=== PATIENT | female | born 1985 | race Caucasian/White ===

== ENCOUNTER → 2017-02-28 | Outpatient (CLI) | payer BC, OTHER ==
[~2017-02-28] MED LIST: MULT-506 PO
== END | disposition home or self-care (01) ==
LOC: C.PAPS 11:54
PROVIDERS: ATTEND Obstetrics & Gynecology
DX: Z01.419 Encounter for gynecological examination (general) (routine) without abnormal findings (principal)

== ENCOUNTER → 2017-04-14 | Outpatient (CLI) | payer OTHER ==
[2017-04-14 16:21] LABS: URINE APPEARANCE TURBID (CLEAR); URINE BILIRUBIN NEG (NEG); URINE COLOR YELLOW; URINE EPITHELIAL CELL AUTO >30 /lpf (0-5); URINE NITRITE NEG (NEG); URINE PH 5.5 (4.5-7.5); URINE SPECIFIC GRAVITY 1.031 (1.000-1.030); UROBILINOGEN NEG (NEG)
[2017-04-14 16:22] LABS: MANUAL MICROSCOPIC REQUIRED? NO; REVIEW REQ? NO
[2017-04-18 02:32] LABS: CHLAMYDIA TRACH RNA*** NOT DETECTED (NOT DETECTED); GC (NEIS GONORRHOEAE)RNA** NOT DETECTED (NOT DETECTED)
== END | disposition home or self-care (01) ==
LOC: C.LABSPEC 15:38
PROVIDERS: ATTEND Obstetrics & Gynecology
DX: Z34.91 Encounter for supervision of normal pregnancy, unspecified, first trimester (principal)

== ENCOUNTER → 2017-06-05 | Outpatient (CLI) | payer OTHER ==
[2017-06-05 18:58] LABS: GTGD 50 Grams
[2017-06-08 14:49] LABS: AFP CONCENTRATION 42.8 NG/ML; AFPTS INSULIN DEP DIABETIC? NO; AFPTS MATERNAL WT 183 LBS; ALPHA-FETOPROTEIN RACE CAUCASIAN=W; ESTRIOL MULTIPLE OF MEDIAN 0.78; HISTORY OF NTD NO; INHIBIN A 157 PG/ML; INHIBIN A MOM 1.01; REPEAT SAMPLE? NO; hCG MULTIPLE OF MEDIAN 1.61
== END | disposition home or self-care (01) ==
LOC: C.LAB 17:41
PROVIDERS: ATTEND Obstetrics & Gynecology
DX: Z34.91 Encounter for supervision of normal pregnancy, unspecified, first trimester (principal)

== ENCOUNTER → 2017-08-28 | Outpatient (CLI) | payer OTHER ==
[2017-08-28 14:14] LABS: HEMATOCRIT 34.2 % (37-47)
[2017-08-28 16:27] LABS: URINE APPEARANCE CLEAR (CLEAR); URINE BILIRUBIN NEG (NEG); URINE COLOR YELLOW; URINE NITRITE NEG (NEG); URINE PH 7.5 (4.5-7.5); UROBILINOGEN NEG (NEG)
[2017-08-28 16:28] LABS: MANUAL MICROSCOPIC REQUIRED? NO; REVIEW REQ? NO
[2017-08-29 10:15] LABS: GTGD 50 Grams
== END | disposition home or self-care (01) ==
LOC: C.LAB 12:48
PROVIDERS: ATTEND Obstetrics & Gynecology
DX: Z34.92 Encounter for supervision of normal pregnancy, unspecified, second trimester (principal)

== ENCOUNTER → 2017-10-23 | Outpatient (CLI) | payer OTHER | END | disposition home or self-care (01) | LOC: C.LABSPEC 17:31 | PROVIDERS: ATTEND Obstetrics & Gynecology | DX: Z34.93 Encounter for supervision of normal pregnancy, unspecified, third trimester (principal); Z3A.00 Weeks of gestation of pregnancy not specified ==

== ENCOUNTER 2017-11-09 12:32 | Inpatient (IN) | payer OTHER ==
[~2017-11-09] VITALS: Ht 170.2 cm; Wt 100.5 kg
[2017-11-09] MEDS ORDERED: LACTATED RINGER'S 1000ML 500 ML IV PRN ×2 (13:02→17:46)
[2017-11-09] MEDS ORDERED: LACTATED RINGER'S 1000ML 1,000 ML IV PRN (13:02)
[2017-11-09] MEDS ORDERED: OXYTOCIN 30 UNITS/500ML NSS IV PRN (13:15)
[2017-11-09 13:28] LABS: HEMATOCRIT 35.3 % (37-47); HEMOGLOBIN 12.4 g/dL (12.0-16.0); MEAN CELL VOLUME 88.5 fL (80-100); MEAN CORPUSCULAR HEMOGLOBIN 31.1 pg (25-34); MEAN CORPUSCULAR HGB CONC 35.1 g/dl (32-36); MEAN PLATELET VOLUME 9.9 fL (7.4-10.4); PLATELET COUNT 203 K/uL (130-400); RED CELL DISTRIBUTION WIDTH CV 12.8 % (11.5-14.5); RED CELL DISTRIBUTION WIDTH SD 41.4 fL (36.4-46.3); WHITE BLOOD COUNT 13.43 K/uL (4.8-10.8)
[2017-11-09] MEDS ORDERED: PENICILLIN G POTASSIUM IV 6 MU in DEXTROSE 5% 250ML 250 ML IV ONE (13:30)
[2017-11-09] MEDS: LACTATED RINGER'S 1000ML 1,000 ML IV SCH ×2 (13:30→17:46)
--- NOTE | 2017-11-09 14:06 | Medical Student: [facility] ---
Med Student History & Physical Date of Service Nov 09, 2017. Chief Complaint R/O Rupture Of Membranes History of Present Illness Source: patient Patient is a 32yo female with PMH significant for a sinus tachycardia of unknown etiology presenting to the hospital at 38+4 weeks with ruptured membranes. Patient reports membranes ruptured at approximately 1205. She denies any contractions at this time but reports movement throughout the day. Patient's is complicated by +GBS status. She is rubella immune, up to date on Tdap (09/10), and is blood type A+. Reports last meal at approximately 8am and a bowel movement this am. Denies: AGUILAR, vision changes, dizziness, NVD, fever, swelling, chest pain, SOB. Patient would like an epidural when appropriate OB History Live male delivered in 2015 at 39+5 weeks via vacuum assisted vaginal delivery due to shoulder dystocia with epidural anesthesia.Infant weighed [id number]. 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 Age first intercourse 18 with 1-5 reported lifetime partners Last pap smear 01/2017 was normal with HX abnormal dysplasia with colposcopies x 2 in 2011 Past Medical History Sinus tachycardia of unknown etiology with rates of 150bpm being within normal limits - followed by cardiology, no medical intervention Past Surgical History [place] teeth D+E for retained placenta 2015 Family History Non-contributory Social History Smoking Status: Never Smoker Smokeless Tobacco Use: No Alcohol Use: none Drug Use: none Marital Status: Housing status: lives with family Occupational Status: employed Allergies Coded Allergies: No Known Allergies (Unverified , 04/20/16) Home Medications Multivitamin (Multivitamin), 1 TAB PO AM Review of Systems Constitutional: No fever, No chills, No sweats Eyes: No worsening of vision Respiratory: No shortness of breath Cardiovascular: No chest pain, No edema, No palpitations Abdomen: No pain, No nausea, No vomiting, No diarrhea, No constipation Musculoskeletal: No swelling, No calf pain Genitourinary - Female: + Neurologic: No balance problems Psychiatric: No substance abuse Hematologic / Lymphatic: No clotting problems, No night sweats Allergic / Immunologic: No problem reported Pertinent positives and negatives included in HPI Physical Exam Vital Signs: Temp 36.7 BP 129/78, HR 110bpm, O2 98%, RR 14breaths/min General Appearance: WD/WN, no apparent distress Head: normocephalic, atraumatic Eyes: normal inspection ENT: hearing grossly normal Neck: no JVD, trachea midline Respiratory/Chest: chest non-tender, lungs clear, normal breath sounds, no respiratory distress, no accessory muscle use Cardiovascular: regular rate, rhythm, no edema, no gallop, no JVD, no murmur, normal peripheral pulses Abdomen / GI: non tender, soft Extremities: normal inspection, no calf tenderness, normal capillary refill, no pedal edema, normal range of motion, non-tender Neurologic/Psych: alert, normal mood/affect, oriented x 3 Skin: normal color, warm/dry, no rash Monitoring External Monitor: FHR at 138bpm with moderate variability and no decelerations noted - Category I tracing Tocodynamometer: Irregular contractions Laboratory Results 11/09/17 13:10 Test 11/09/17 13:10 Red Blood Count 3.99 M/uL (4.2-5.4) Mean Corpuscular Volume 88.5 fL (80-100) Mean Corpuscular Hemoglobin 31.1 pg (25-34) Mean Corpuscular Hemoglobin Concent 35.1 g/dl (32-36) RDW Standard Deviation 41.4 fL (36.4-46.3) RDW Coefficient of Variation 12.8 % (11.5-14.5) Mean Platelet Volume 9.9 fL (7.4-10.4) Assessment and Plan Patient is a 32yo presenting with ruptured membranes. Begin expectant management of impending delivery - US to assess amniotic fluid and confirm rupture - Consult with anesthesiology for epidural placement - Repeat cervical check at regular intervals - Continuos monitoring looking for signs of distress - variable/late decelerations with position changes attempted - Begin Pitocin to augment contraction sensation - NPO status until after delivery Call if patient develops fever, bp <100/60, HR >120 or <50, O2 <90% or if positioning does not alleviate FHR monitor decels
--- NOTE | 2017-11-09 15:29 | Medical Student: [facility] ---
Med Student History & Physical Date of Service Nov 09, 2017. Chief Complaint R/O Rupture Of Membranes History of Present Illness Source: patient Patient is a 32yo NEYDA of 02/13 by LMP at 38 (+4) weeks with PMH significant for a sinus tachycardia of unknown etiology presenting to the hospital with ruptured membranes. Membranes ruptured at approximately 1205, fluid was largely clear. She denies any contractions at this time but reports movement throughout the day. Patient has history of delivery at 39 (+5) weeks via vacuum assisted vaginal delivery of 9lb1oz viable male secondary to shoulder dystocia requiring induced clavicular fracture. Blood type is A+, antibody (-), rubella immune, negative diabetes screen x2, GBS (+). Tdap administered on 09/10. Vanishing twin syndrome noted at 9wk US. Last meal at approximately 8am and a bowel movement this am. Denies AGUILAR, vision changes, dizziness, NVD, fever, swelling, chest pain, SOB. Patient would like an epidural when appropriate OB History Vacuum assisted vaginal delivery of 9lb1oz male secondary to shoulder dystocia requiring induced clavicular fracture. 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 Most recent pap 02/2017 normal. Past Medical History Sinus tachycardia syndrome of unknown etiology - followed by cardiology Past Surgical History D+E for retained placental contents 2016 [place] teeth Family History Non-contributory Social History Smoking Status: Never Smoker Smokeless Tobacco Use: No Alcohol Use: none Drug Use: none Marital Status: Housing status: lives with family Occupational Status: employed Allergies Coded Allergies: No Known Allergies (Unverified , 04/20/16) Home Medications Multivitamin (Multivitamin), 1 TAB PO AM Review of Systems Constitutional: No fever, No chills Eyes: No worsening of vision Respiratory: No shortness of breath Cardiovascular: No chest pain, No edema Abdomen: No pain, No nausea, No vomiting, No diarrhea, No constipation Genitourinary - Female: + , No problem reported Neurologic: No balance problems Psychiatric: No substance abuse Physical Exam Vital Signs: 36.7 HR 108 BP 129/78 RR 14 O2 98% General Appearance: WD/WN, no apparent distress, + pertinent finding Head: normocephalic, atraumatic Eyes: normal inspection, sclerae normal ENT: hearing grossly normal Neck: supple, no JVD, trachea midline Respiratory/Chest: lungs clear, normal breath sounds, no respiratory distress, no accessory muscle use Cardiovascular: regular rate, rhythm, no edema, no gallop, no JVD, no murmur, normal peripheral pulses Abdomen / GI: non tender, soft Fundal Height: Term Extremities: normal inspection, no calf tenderness, normal capillary refill, no pedal edema, normal range of motion, non-tender Neurologic/Psych: alert, normal mood/affect, oriented x 3 Skin: normal color, warm/dry Abdomen: Gravid, fundal height at term, positive heart tones at 143bpm, position is vertex, estimated weight of 9lbs. No palpable contractions Pelvis: Per Dr. Walton exam 3cm dilated, 50% effaced, at -2 station. Speculum exam deferred. Extremities: No calf tenderness to palpation bilaterally, no signs of rubor or dolor, calf diameters visually symmetrical. Appropriate capillary refill Neuro: No evidence of hyperreflexia or clonus. Spontaneous movement all extremities. Alert and oriented x3 Monitoring External Monitor: Baseline HR in 140s with moderate variability and no decelerations: Category I tracing. Tocodynamometer: Irregular, minimal contractions Laboratory Results 11/09/17 13:10 Test 11/09/17 13:10 Red Blood Count 3.99 M/uL (4.2-5.4) Mean Corpuscular Volume 88.5 fL (80-100) Mean Corpuscular Hemoglobin 31.1 pg (25-34) Mean Corpuscular Hemoglobin Concent 35.1 g/dl (32-36) RDW Standard Deviation 41.4 fL (36.4-46.3) RDW Coefficient of Variation 12.8 % (11.5-14.5) Mean Platelet Volume 9.9 fL (7.4-10.4) Assessment and Plan Patient is a 32yo at 38(+4) week with history of prior with shoulder dystocia requiring vacuum assistance presenting with rupture membranes. Expectant management of labor and delivery - Cervical check at regular intervals to assess progression - Begin Pitocin to initiate regular contractions - Consult anesthesiology for epidural placement at patient's request - NPO status - water and ice chips acceptable - Continuous monitoring for signs of distress (variable/late decels, sinusoidal pattern) - change of position for possible resolution - contact provider if unrelenting - Vitals q20min for maternal monitoring - 1 assist ambulation until epidural is placed - Straight cath if necessary for bladder drainage once epidural is placed GBS(+) status - Begin IV ampicillin x2-3 doses during labor Contact provider for non-reassuring monitoring, sudden AGUILAR, NV, visual changes, unexplainable vital sign changes
[2017-11-09 16:08] VITALS: Ht 170.2 cm; Wt 100.5 kg
[2017-11-09] MEDS ORDERED: BUPIVACAINE 0.25% 30 ML VIAL ONE (16:31)
[2017-11-09] MEDS ORDERED: EpHEDrine SULFATE INJ 50 MG/ML AMP ONE (16:31)
[2017-11-09] MEDS ORDERED: FENTANYL CITRATE INJ 50 MCG/1 ML 2 ML VIAL ONE (16:32)
[2017-11-09] MEDS ORDERED: FENTANYL 2MCG/ML ROPIV 1.25MG/ML 100ML BAG EPI ONE (16:33)
[2017-11-09] MEDS: PENICILLIN G POTASSIUM IV 3 MU in DEXTROSE 5% 100ML 100 ML IV PRN ×2 (17:27→21:37)
[2017-11-09] MEDS ORDERED: NALOXONE HCL INJ 1 MG in SODIUM CHLORIDE 0.9% 1000ML 1,000 ML IV PRN (17:46)
[2017-11-09] MEDS ORDERED: FENTANYL 2MCG/ML ROPIV 1.25MG/ML 100ML BAG EPI PRN (18:00)
[2017-11-09] MEDS ORDERED: PROMETHAZINE HCL INJ 6.25 MG in SODIUM CHLORIDE 0.9% 50ML 50 ML IV PRN (18:00)
[2017-11-09] MEDS ORDERED: NALOXONE HCL INJ 0.4 MG/1 ML VIAL/CARP IV PRN (18:00)
[2017-11-09] MEDS ORDERED: DiphenhydrAMINE HCL 50 MG/ML VIAL IV PRN (18:00)
[2017-11-09] MEDS ORDERED: ONDANSETRON INJ 2 MG/ML 2 ML VIAL IV PRN (18:00)
[2017-11-09] MEDS ORDERED: NALBUPHINE HCL INJ 10 MG/ML AMP IV PRN (18:00)
[2017-11-09] MEDS ORDERED: EpHEDrine SULFATE INJ 50 MG/ML AMP IV PRN (18:00)
[2017-11-10] MEDS ORDERED: DIPHTHERIA/TETANUS/PERTUSSIS 0.5 ML SYR/VIAL IM. ONE (00:30)
[2017-11-10] MEDS ORDERED: ACETAMINOPHEN 325 MG TAB PO PRN (00:30)
[2017-11-10] MEDS ORDERED: ACETAMINOPHEN/CODEINE 300/30MG TAB PO PRN ×2 (00:30)
[2017-11-10] MEDS ORDERED: HYDROCORTISONE ACETATE 25 MG SUPP PR PRN (00:30)
[2017-11-10] MEDS ORDERED: LANOLIN OINT EXT PRN (00:30)
[2017-11-10] MEDS ORDERED: OXYTOCIN 30 UNITS/500ML NSS IV PRN (00:30)
[2017-11-10] MEDS ORDERED: SUPERCREAM 0.870 % 15GM JAR EXT PRN (00:30)
[2017-11-10] MEDS ORDERED: BENZOCAINE 20% AER SPR 82.5 GM CAN EXT PRN (00:30)
[2017-11-10 03:01] VITALS: BP 119/75; PULSE 102; TEMP 37
--- NOTE | 2017-11-10 04:39 | DELIVERY SUMMARY ---
DATE OF OPERATION: 11/10/2017 FINDINGS: Viable male with Apgars of 8 and 9. Tight nuchal cord cut on the perineum. Cord blood samples obtained. Placenta delivered spontaneously. Second-degree midline laceration repaired. Estimated blood loss 300 mL. LABOR NOTE: The patient is a 32-year-old 2, para 1, with an EDC of 11/20/2017 at 38+ weeks gestational age, who presented to labor and delivery with spontaneous rupture of membranes. The patient states her membranes ruptured around 1100 hours on 11/09/2017 with no real contractions. The patient's first in 2016 was a shoulder dystocia vacuum delivery with a broken clavicle, baby delivered at 39-5/7 weeks. This was remarkable for a vanishing twin. At her new OB visit, there was a second empty sac. Ultrasound also showed a small septate uterus. Laboratory values for the showed blood type of A positive, antibody negative, rubella immune, hepatitis B negative, negative quad screen, normal 1-hour Glucola x2 and a positive third trimester beta strep culture. Upon admission, the patient was 3 cm dilated, 50% effaced and -2 station with a positive AmniSure. Because of the positive GBS status, she was started on penicillin 6 million units loading dose and 3 million units every 4 hours. With the rupture of membranes and no real contractions, Pitocin was started per induction protocol. Pitocin was increased per induction protocol, the patient became uncomfortable and an epidural was placed. The patient made minimal progress for the first 6 hours and intrauterine pressure catheter was placed. She eventually went into an active labor and made rapid change from 4 cm to fully dilated. She pushed for approximately 5 minutes, delivering a viable male infant with delivery of the vertex over the tight nuchal cord that could not be reduced. As such, the cord was cut on the perineum. Baby was delivered. Cord blood samples were obtained. Placenta delivered spontaneously. Inspection of the perineum showed midline second-degree laceration which was repaired with 4-0 Vicryl in routine fashion. Estimated blood loss was 300 mL. Sponge and needle count was correct. I attest to the content of the Intraoperative Record and any orders documented therein. Any exception s are noted below.
--- NOTE | 2017-11-10 06:56 | Discharge Instructions ---
Discharge Instructions Date of Service Nov 10, 2017. Admission Reason for Admission: R/O Rupture Of Membranes Discharge Discharge Diagnosis / Problem: Vaginal Delivery Discharge Goals Goal(s): Routine recovery after delivery Medications Continue Dispensed Medications: supercream, dermaplast, tucks, lansinoh Activity Recommendations Activity Limitations: per Instructions/Follow-up section . Instructions / Follow-Up Instructions / Follow-Up ACTIVITY RECOMMENDATIONS: * Gradual return to full activity over the next 2-3 weeks. * No lifting - nothing heavier than baby over the next 2-3 weeks. * Do not engage in vigorous exercise, sexual activity or sports until cleared by your physician. * Do not drive or operate any motorized equipment until cleared by your physician. * You may shower/bathe daily. MEDICATIONS: For discomfort or pain, you may use Acetaminophen (Tylenol), Ibuprofen (Advil), or Naproxen (Aleve) following the package directions. For constipation you may use Colace following the package directions. BREAST CARE: If you are not breast feeding: * Wear a supportive bra 24 hours a day for one to two weeks. * Avoid stimulating your breasts and nipples as much as possible during the first few weeks after delivery. * When taking a shower, have the warm water hit your back, not breasts. * When your breasts feel full, apply ice packs. Usually three to four times a day helps ease the discomfort. * Take a mild pain medication (Tylenol / Motrin) when you are uncomfortable. If breast feeding: * Use breast milk to lubricate nipples. Lansinoh cream may be used for sore nipples. You do not need to remove cream prior to breast feeding. If using a different brand of cream, check the label for directions regarding removal of cream prior to nursing. * Wear a supportive bra. * If having problems with breasts or breast feeding, call a center lead consultant or your health care provider. EPISIOTOMY CARE: After delivery, if you have an episiotomy (stitches), the following steps will ease discomfort and aid healing. * For the first 24 hours after delivery, place ice packs next to your episiotomy to help reduce swelling. * After the first 24 hour-period, sitz baths, either portable or in the tub, are suggested. A shower with a shower arm sprayed over the episiotomy may be comforting. * Sima care should be done after each voiding and bowel movement. Squirt warm water from a plastic bottle over the perineum (region of the body between the anus and urinary opening) and pat dry. * Use Dermoplast to ease discomfort. Shake container. [place] directly over the episiotomy. Place a Tucks on a clean sanitary pad next to your episiotomy. SPECIAL CARE INSTRUCTIONS: When you are discharged from the hospital, it is important for you to follow the instructions listed below: * During the first week at home, you should be able to care for yourself and your baby. In addition, the usual light household activities are encouraged. * Limit your activities to the way you feel. Do not try to clean the house or move furniture. Be sensible. * If you actively engage in sports and have done so up until the time of your delivery, you may resume these activities as soon as you feel able. This may take up to one month or even longer. Use good judgment. * Continue to take your vitamins for at least six weeks after the of your baby. * Your diet need not be limited unless you were on a special diet before your delivery. Breast-feeding mothers need around 2500 calories per day and at least 64-80 ounces of fluid per day (8 to 10 glasses). * You should eat foods from the four major food groups. Crash diets or fad diets are to be avoided. Eating lean meats, fresh fruits and vegetables, low-fat dairy products, high fiber foods and a regular exercise program, will help you get back to your pre- weight without putting your health at risk. * Constipation is sometimes a problem after delivery. Take a mild laxative as needed. If breast feeding, Milk of Magnesia is acceptable to use. You may use a suppository or Fleets enema if no episiotomy. * A daily shower or tub bath is suggested. Be sure to thoroughly and gently dry the perineum. * A bloody vaginal discharge will usually continue until around four weeks post . A small amount of bleeding may continue for as long as six weeks. Vaginal discharge changes from the bright red bleeding after delivery to pink then brownish and finally yellowish-pink before becoming white and disappearing. * Bleeding may increase with activity. Your first period may come in 4-8 weeks. If you are breast feeding, your period may be delayed even longer. * [place] (sex) can begin whenever both you and your partner feel comfortable and do not have any form of genital infection. It is recommended that you wait at least six weeks for internal and external healing to occur. If you have questions, please talk to your health care practitioner. A condom should be used to prevent infection and . * Foreplay, gentle intercourse and lubrication is very important the first several times to prevent pain. A water-based lubricant such as K-Y jelly or Astroglide may be used. * If you have RH negative blood and your baby is RH positive, you will receive RHOGAM by injection prior to discharge. The nurse will give you a card to keep with you that has the date and place that you received RHOGAM after delivery. * During your care, you had a Rubella screen done to check for the presence of rubella antibodies in your blood. If your test was negative, you will receive a Rubella vaccine prior to discharge. This vaccine may cause a fever, soreness at the injection site and flu-like symptoms. If these symptoms persist, notify your health care practitioner. is not advised for one month after a Rubella vaccine. * Verbalizes understanding of car seat law as reviewed with patient nursing. * Car Seat hand-out given and reviewed with patient by nursing. * Shaken baby information reviewed with patient by nursing. Call you doctor if: * Heavy bleeding (saturating several pads an hour) or passing clots the size of your fist. * A fever >101 degrees F (38.3 degrees C) on two occasions four hours apart and /or chills. * Unusual pain in the pelvic or vaginal areas. * "Baby Blues" lasting longer than two weeks. If you have any questions or concerns, call your health care practitioner at . FOLLOW UP VISIT: * Please call the office at to schedule a 6 week examination. It is important you keep this appointment. It is important for you to make arrangements for either yearly or twice yearly check-ups thereafter. Current Hospital Diet Patient's current hospital diet: Regular OB Diet Discharge Diet Recommended Diet: Regular Diet Pending Studies Studies pending at discharge: no Medical Emergencies . Who to Call and When: Medical Emergencies: If at any time you feel your situation is an emergency, please call 911 immediately. . Non-Emergent Contact Non-Emergency issues call your: Primary Care Provider . . "Provider Documentation" section prepared by Nicolasa Sanchez. . VTE Core Measure Inpt VTE Proph given/why not?: Treatment not indicated
--- NOTE | 2017-11-10 07:38 | Anesthesia Procedure Note ---
Anesthesia Epidural Removal Nt Date & Time Nov 10, 2017 at 07:38 Vital Signs Pain Intensity: 0.0 Vital Signs Past 12 Hours Date Time Temp Pulse Resp B/P (MAP) Pulse Ox O2 Delivery O2 Flow Rate FiO2 11/10/17 03:05 Room Air 11/10/17 03:01 37.0 102 18 119/75 (90) Room Air Notes Mental Status: alert / awake / arousable, participated in evaluation Nausea / Vomiting: adequately controlled Pain: adequately controlled Airway Patency, RR, SpO2: stable & adequate BP & HR: stable & adequate Hydration State: stable & adequate Neuraxial Anesthesia: was administered, sensory block is resolved Anesthetic Complications: no major complications apparent, pt satisfied with anesthetic care Epidural: removed without complications, with tip intact
[2017-11-10 08:00] VITALS: BP 108/70; PULSE 83; TEMP 37.1
[2017-11-10] MEDS: FERROUS SULFATE 325 MG TAB PO SCH (08:28)
[2017-11-10] MEDS: PRENATAL VITAMIN TAB PO SCH (08:28)
[2017-11-10] MEDS: DOCUSATE SODIUM 100 MG CAP PO SCH ×2 (08:28→19:43)
[2017-11-10] MEDS: IBUPROFEN 600 MG TAB PO PRN ×2 (08:34→19:43)
[2017-11-10 13:00] VITALS: BP 114/70; PULSE 87; TEMP 37.2
[2017-11-10 16:00] VITALS: BP 137/81; PULSE 83; TEMP 37.3
[2017-11-10 19:45] VITALS: BP 125/78; PULSE 81; TEMP 36.6
[2017-11-10 23:15] VITALS: BP 120/79; PULSE 85; TEMP 37.1; O2SAT 96
[2017-11-11] MEDS: IBUPROFEN 600 MG TAB PO PRN ×4 (00:43→21:10)
--- NOTE | 2017-11-11 06:38 | Progress Note ---
Subjective Nov 11, 2017. Subjective conversation w/ patient (Patient seen and examined at bedside) Ambulation: ambulating normally Voiding: no voiding problems Diet Tolerance: Regular Diet Lochia: Moderate Feeding Type: Breast Feeding Pain: 2/10 cramping pain, improved with analgesia Review of Systems Constitutional: No fever, No chills Respiratory: No shortness of breath Cardiac: No chest pain Abdomen: No nausea, No vomiting Female : No dysuria Objective Vital Signs Date Time Temp Pulse Resp B/P (MAP) Pulse Ox O2 Delivery O2 Flow Rate FiO2 11/10/17 23:15 37.1 85 18 120/79 (93) 96 Room Air 11/10/17 23:15 96 Room Air 11/10/17 19:45 36.6 81 18 125/78 (94) Room Air 11/10/17 16:00 Room Air 11/10/17 16:00 37.3 83 16 137/81 (99) Room Air 11/10/17 13:00 37.2 87 20 114/70 (85) Room Air 11/10/17 08:00 37.1 83 20 108/70 (83) Room Air 11/10/17 08:00 Room Air Physical Exam General Appearance: WELL-APPEARING, WD/WN, NO APPARENT DISTRESS Respiratory/Chest: lungs clear, normal breath sounds Cardiovascular: regular rate, rhythm Abdomen: soft Fundus: Firm, Non-Tender, Relation to Umbilicus (at u) Extremities: no calf tenderness Laboratory Results Last 24 Hours Test 11/11/17 04:44 Medications Current Inpatient Medications Medications (Trade) Dose Ordered Sig/Se Route Start Time Stop Time Status Last Admin Dose Admin Oxytocin (Pitocin IV) 30 units UD PRN IV 11/10/17 00:30 12/10/17 00:29 Benzocaine (Dermoplast Aero Spr) 1 appln PRN PRN EXT 11/10/17 00:30 12/10/17 00:29 Cocaine HCl (Supercream 0.870% Cr) BID PRN EXT 11/10/17 00:30 11/24/17 00:29 11/10/17 02:49 15 GM Hydrocortisone Acetate (Anusol Hc Supp) 25 mg BID PRN MS 11/10/17 00:30 12/10/17 00:29 Lanolin (Lanolin Oint) PRN PRN EXT 11/10/17 00:30 12/10/17 00:29 Prenat Multivit/ Paper Control Clerk/Iron/Folic Ac ( Vitamin Tab) 1 tab DAILY PO 11/10/17 08:00 12/10/17 07:59 11/10/17 08:28 1 TAB Ibuprofen (Motrin Tab) 600 mg Q4H PRN PO 11/10/17 00:30 12/10/17 00:29 11/11/17 00:43 600 MG Acetaminophen (Tylenol Tab) 650 mg Q6H PRN PO 11/10/17 00:30 12/10/17 00:29 Acetaminophen/ Codeine Phosphate (Tylenol w/ Codeine #3 Tab) 1 tab Q4H PRN PO 11/10/17 00:30 12/10/17 00:29 Acetaminophen/ Codeine Phosphate (Tylenol w/ Codeine #3 Tab) 2 tab Q4H PRN PO 11/10/17 00:30 12/10/17 00:29 Bisacodyl (Dulcolax Tab) 5 mg 20 PO 11/11/17 20:00 11/11/17 20:01 Docusate Sodium (coLACE CAP) 100 mg BID PO 11/10/17 08:00 12/10/17 07:59 11/10/17 19:43 100 MG Ferrous Sulfate (Feosol Tab) 325 mg DAILY PO 11/10/17 08:00 12/10/17 07:59 11/10/17 08:28 325 MG Assessment and Plan Post- Day#: 1 Continue Routine Care: Resident Physician Supervision Note: I was present with Dr. Sanchez during the history and exam. I discussed the case with the resident and agree with the findings and plan as documented in the note. Any exceptions or clarifications are listed here: [None] Documented By: Shelia Redd 32 year old s/p NVD day 1 - GBS +ve - treated with penicillin during labour - pt doing well clinically - A+, Rubella immune - vitals reviewed and wnl - continue to encourage ambulation, and analgesia prn - baby required to stay 48hrs, anticipate d/c tomorrow Resident Tracking Resident Involvement: Resident Care Provided Care Provided: OB Delivery
[2017-11-11 07:49] VITALS: BP 128/84; PULSE 76; TEMP 36.7
[2017-11-11 08:08] LABS: HEMOGLOBIN 10.7 g/dL (12.0-16.0)
[2017-11-11] MEDS: PRENATAL VITAMIN TAB PO SCH (08:31)
[2017-11-11] MEDS: DOCUSATE SODIUM 100 MG CAP PO SCH ×2 (08:31→19:52)
[2017-11-11] MEDS: FERROUS SULFATE 325 MG TAB PO SCH (08:31)
[2017-11-11 15:40] VITALS: BP 114/73; PULSE 87; TEMP 37.3; O2SAT 97
[2017-11-11] MEDS ORDERED: BISACODYL 5 MG TABEC PO SCH (20:00)
[2017-11-11 23:30] VITALS: BP 120/74; PULSE 70; TEMP 37.1
[2017-11-12 07:30] VITALS: BP 118/78; PULSE 88; TEMP 36.9; O2SAT 97
[2017-11-12] MEDS: FERROUS SULFATE 325 MG TAB PO SCH (07:47)
[2017-11-12] MEDS: DOCUSATE SODIUM 100 MG CAP PO SCH (07:47)
[2017-11-12] MEDS: PRENATAL VITAMIN TAB PO SCH (07:47)
[2017-11-12] MEDS: IBUPROFEN 600 MG TAB PO PRN (07:47)
--- NOTE | 2017-11-12 09:48 | OB/GYN Progress Note ---
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 Subjective conversation w/ patient, physical exam Ambulation: ambulating normally Voiding: no voiding problems Passing Gas: Yes Diet Tolerance: Regular Diet Lochia: Moderate Feeding Type: Breast Feeding Pain: controlled Review of Systems Constitutional: No problem reported Respiratory: No problem reported Cardiac: No problem reported Breast: No problem reported Abdomen: No problem reported Female : No problem reported Objective Vital Signs Date Time Temp Pulse Resp B/P (MAP) Pulse Ox O2 Delivery O2 Flow Rate FiO2 11/11/17 23:30 Room Air 11/11/17 23:30 37.1 70 18 120/74 (89) Room Air 11/11/17 15:40 97 Room Air 11/11/17 15:40 37.3 87 18 114/73 (87) 97 Room Air Physical Exam General Appearance: WELL-APPEARING, NO APPARENT DISTRESS Respiratory/Chest: no respiratory distress Cardiovascular: regular rate, rhythm Abdomen: non tender, soft Fundus: Firm Extremities: normal inspection Assessment and Plan Post- Day Number: 2 Continue Routine Care: PPD#2 doing well. Would like to go home. Discharge instructions discussed. Followup 6w in office.
[2017-11-12 10:19] VITALS: BP_DIAS 78; PULSE 88; TEMP 36.9
== END 2017-11-12 13:10 | disposition home or self-care (01) | DRG 775 ==
LOC: C.LD 12:32 → C.OPB 12:32 → C.LD 13:04 → C.OBG 11-10 02:37 → EDSTATUS 11-13 12:52
PROVIDERS: ADMIT Obstetrics & Gynecology; ATTEND Obstetrics & Gynecology
PROC: 10E0XZZ Delivery of Products of Conception, External Approach (ICD-10-PCS; principal; 2017-11-10)
PROC: 0KQM0ZZ Repair Perineum Muscle, Open Approach (ICD-10-PCS; principal; 2017-11-10)
DX: O69.81X0 Labor and delivery complicated by cord around neck, without compression, not applicable or unspecified (principal); O70.1 Second degree perineal laceration during delivery; Z37.0 Single live birth; Z3A.38 38 weeks gestation of pregnancy